=== PATIENT | male | born 1950 | race African-American/Black ===

== ENCOUNTER 2020-09-10 08:11 | Outpatient (CLI) | payer BC, MEDICARE, SELFPAY ==
--- NOTE | 2020-09-10 16:46 | WPDPFTINT ---
PFT Procedure Performed PFT Procedure Performed Spirometry with Pre/Post Bronchodilator Plethysmography (Lung Vol) Diffusing Cap (DLCO) Flow Vol Loop PFT Interpretation This is a pulmonary function test with pre and post-bronchodilator spirometry, plethysmography and diffusing capacity. The test was performed and results interpreted in accordance with the 2019 and 2005 ATS/ERS Task Force guidelines respectively using the Global Lung Function Initiative-2012 reference equations. Patient demonstrated good effort and cooperation. Reproducibility criteria were met. The quality of the pre bronchodilator spirometry maneuver was Grade B and post bronchodilator spirometry maneuver was Grade B. Findings: Spirometry: There is decreased maximal expiratory airflow at all lung volumes with concave expiratory flow tracing. The contour of the inspiratory flow tracing is normal. The pre bronchodilator FVC is 2.34 L, 52% predicted. The pre bronchodilator FEV1 is 1.47 L, 44% predicted. The FEV1: FVC ratio 63%. The post bronchodilator FVC is 2.71 L, representing a 16% increase. The post bronchodilator FEV1 is 1.51 L, representing a 2% increase. Plethysmography: The total lung capacity is 5.50 L, 74% predicted. The functional residual capacity is 3.48 L, 87% predicted. The residual volume is 3.16 L, 121% predicted. Diffusing capacity: The absolute diffusion capacity is 19.9, 75% predicted. The diffusing capacity corrected for alveolar volume is 4.53, 121% predicted. Impression: There is a combined obstructive and restrictive ventilatory abnormality. There are no guidelines to assign the severity of obstruction and restriction with a combined abnormality. In my opinion, given the moderately concave expiratory flow tracing, moderately decreased FEV1:FVC ratio and bronchodilator response with a mild restrictive abnormality I would state there is a moderate obstructive abnormality and a mild restrictive abnormality resulting in a moderately severe decrease in FEV1. There is significant improvement after inhaling a single dose of albuterol. The diffusing capacity is normal. There are no prior studies for comparison
== END 2020-09-10 08:12 | disposition home or self-care (01) ==
PROVIDERS: PCP Nurse Practitioner Family; Visit Provider Nurse Practitioner
DX: R06.00 Dyspnea, unspecified (principal); R94.2 Abnormal results of pulmonary function studies
CPT/HCPCS: 94060; 94726; 94729

== ENCOUNTER 2023-08-11 19:00 | Emergency (ER) | payer MEDICARE, BC, SELFPAY ==
[2023-08-11 19:09] VITALS: BP 183/88; PULSE 68; RESP 16; TEMP 37.4; O2SAT 99
--- NOTE | 2023-08-11 19:13 | ED.URI ---
HPI - URI/Sore Throat General Chief Complaint: Upper Respiratory Infection Stated Complaint: COUGH/EYE REDNESS Time Seen by Provider: 08/11/23 19:13 Source: patient Mode of arrival: ambulatory Limitations: no limitations History of Present Illness HPI Narrative: 73-year-old male with history of hypertension presented for complaint cough at night for over 1 week. And started with right eye redness a few days ago. He denies eye injury or foreign body sensation. Denies vision changes, headache or drainage. Patient took Sudafed. Takes a daily aspirin. Denies shortness of breath, wheezing nausea, vomiting, diarrhea, fevers or chills. Related Data Home Medications Medication Instructions Recorded Confirmed amlodipine 10 mg tablet 10 mg PO DAILY 08/11/23 08/11/23 aspirin 81 mg capsule 81 mg PO DAILY 08/11/23 08/11/23 carvedilol 6.25 mg tablet 6.25 mg PO BID 08/11/23 08/11/23 tadalafil 5 mg tablet 5 mg PO DAILY 08/11/23 08/11/23 terazosin 10 mg capsule 10 mg PO DAILY 08/11/23 08/11/23 valsartan 320 1 tablet PO DAILY 08/11/23 08/11/23 mg-hydrochlorothiazide 25 mg tablet Allergies Allergy/AdvReac Type Severity Reaction Status Date / Time No Known Allergies Allergy Unknown Verified 08/11/23 19:11 Review of Systems Review of Systems: CONSTITUTIONAL: Denies body aches, fever, chills, or sweats. EYES: Reports right eye redness Denies visual changes, pain, or discharge. ENT: Denies rhinorrhea, congestion, sore throat, or otalgia. CARDIOVASCULAR: Denies chest pain, palpitations, or edema. RESPIRATORY: Reports cough, denies sob, wheezing. GASTROINTESTINAL: Denies abdominal pain, nausea, vomiting, or diarrhea. SKIN: Denies rash, itching, or wounds. MUSCULOSKELETAL: Denies back pain, joint pain, or myalgia. NEUROLOGIC: Denies headache, numbness, tingling, or weakness. All systems reviewed & are unremarkable except as noted in HPI and below PMFSH Past Medical History Medical History (Updated 08/11/23 @ 19:56 by Jenelle Ball APRN) Hypertension Comments At time of signature, I have reviewed and agree with nursing past medical, surgical, social and family history unless otherwise noted. Please see nursing chart for further information. There is no relevant family history pertinent to the presenting complaint Exam Narrative: GENERAL: Well-appearing, in no acute distress. EYES: EOMI. PERRLA. Right subconjunctival hemorrhage noted, no swelling or drainage. ENT: Mucous membranes pink and moist. No rhinorrhea. TMs normal bilaterally. Throat normal. Uvula midline. NECK: Normal AROM. Supple. CHEST: No respiratory distress. Lungs clear to all dobbins. HEART: Regular rate and rhythm. No murmur appreciated. ABDOMEN: Soft, nontender, nondistended, normal active bowel sounds. EXTREMITIES: Normal range of motion. No edema. SKIN: Warm, dry, no rash. Capillary refill normal. Normal skin turgor. NEURO: Alert and oriented x3. Gait steady. PSYCH: Normal affect. Course Course Emergency Course: Patient is aware of diagnosis, understands and agrees to treatment plan. Anticipatory guidance given. Patient agrees to follow-up as directed and is aware of reasons to seek care at the emergency department. Portions of this record may have been created with voice recognition software Level of Care: Express Care Visit Vital Signs Vital signs: Vital Signs Temperature 99.4 F 08/11/23 19:09 Pulse Rate 68 08/11/23 19:09 Respiratory Rate 16 08/11/23 19:09 Blood Pressure 183/88 H 08/11/23 19:09 Pulse Oximetry 99 08/11/23 19:09 Temperature 99.4 F 08/11/23 19:09 Pulse Rate 68 08/11/23 19:09 Respiratory Rate 16 08/11/23 19:09 Blood Pressure 188/76 H 08/11/23 19:30 Pulse Oximetry 99 08/11/23 19:09 MDM - URI/Sore Throat MDM Narrative Medical decision making narrative: Discussed physical exam findings consistent with subconjunctival hemorrhage and most likely bronchitis. Domenica
[2023-08-11 19:30] VITALS: BP 188/76
== END 2023-08-11 19:33 | disposition home or self-care (01) ==
PROVIDERS: Emergency Provider Nurse Practitioner Family; PCP Nurse Practitioner Family
DX: J40 Bronchitis, not specified as acute or chronic (principal); H11.31 Conjunctival hemorrhage, right eye; I10 Essential (primary) hypertension; Z79.82 Long term (current) use of aspirin
CPT/HCPCS: 99213; G0463